=== PATIENT | female | born 1985 | race Caucasian/White ===

== ENCOUNTER 2023-08-04 19:17 | Emergency (ER) | payer SELFPAY ==
--- NOTE | 2023-08-04 19:21 | ED.FEMALEGU ---
HPI - Female Genitourinary General Chief complaint: Urogenital-Female Stated complaint: bladder infection Time Seen by Provider: 08/04/23 19:21 Source: patient Mode of arrival: ambulatory Limitations: no limitations History of Present Illness HPI Narrative: 38-year-old female presents concern for urinary tract infection. She had previously had recurrent urinary tract infections when she was younger, usually around the times she was . Her last urinary tract infection was 2010. She never had any complicated or antibiotic resistant urinary tract infections. She does not know if she has been having any hematuria as she has been trying to self medicate with azo and this discolors her urine. She denies some fevers. LMP 08/02/23. She denies any burning sensation but she does state that it hurts when she pees and feels like she still needs to urinate after voiding. She denies any urinary urgency or frequency. Denies any other vaginal discharge. No back or flank pain. Not currently Sexually active . Related Data Allergies Allergy/AdvReac Type Severity Reaction Status Date / Time morphine Allergy Unknown Other Verified 08/04/23 19:30 [facility] Past Medical History Medical History (Updated 08/04/23 @ 20:40 by Cayla Garcia MD) History of recurrent UTI (urinary tract infection) Exam Narrative: GENERAL: Well-appearing, well-nourished, and in no acute distress. HEAD: Normocephalic, atraumatic. EYES: Non injected, non icteric ENT: Nares clear, no rhinorrhea or epistaxis. NECK: Supple. CHEST: . No respiratory distress. speaking full sentences HEART: tachycardic rate and rhythm. . ABDOMEN: Soft, nondistended. no tenderness to palpation including no suprapubic tenderness BACK: no CVA tenderness bilaterally EXTREMITIES: Normal range of motion. No edema. SKIN: Warm, dry, no rash. NEURO: No focal deficits. Alert and oriented x3. PSYCH: Normal mood and affect. Course Vital Signs Vital signs: Vital Signs Temperature 97.0 F L 08/04/23 19:25 Pulse Rate 110 H 08/04/23 19:25 Respiratory Rate 20 08/04/23 19:25 Blood Pressure 157/79 H 08/04/23 19:25 Pulse Oximetry 97 08/04/23 19:25 Oxygen Delivery Room Air 08/04/23 19:25 Temperature 97.0 F L 08/04/23 19:25 Pulse Rate 110 H 08/04/23 19:25 Respiratory Rate 20 08/04/23 19:25 Blood Pressure 157/79 H 08/04/23 19:25 Pulse Oximetry 97 08/04/23 19:25 Oxygen Delivery Room Air 08/04/23 19:25 MDM - Female Genitourinary MDM Narrative Medical decision making narrative: This is a 38-year-old female who presents with concern for urinary tract infection. She previously had recurrent urinary tract infections when she was younger but none complicated or antibiotic resistant. Her last urinary tract infections was in 2010. She is having some pain with urination feels like she still has to pee after voiding. Unknown hematuria as patient has been self medicating with azo this discolors urine. In the emergency department she is afebrile with vital signs notable for mild tachycardia and hypertension. test negative. Did attempt to perform urinalysis but it is magalie colored in this discoloration in the setting of taking azo limits full interpretation bands there is a evidence of RBCs but no further testing can be performed. I did discuss with the lab in the verify this to be the case. They stated it is possible to perform another simple after patient hydrated an attempt for dilution but cannot guarantee That this would be successful. In addition, when I discussed this with the patient she notes that she took an azo just prior to coming to the emergency department. Given patient is symptomatic and there is high enough suspicion, we will treat for urinary tract infection. She is given her 1st dose of antibiotics in the emergency department with gross the course prescribed. I have discussed that she should follow-up with her rell
[2023-08-04 19:25] VITALS: BP 157/79; PULSE 110; RESP 20; TEMP 36.1; O2SAT 97
--- NOTE | 2023-08-04 19:34 | PC.NURSE ---
Pt refused to change into gown.
[2023-08-04 20:16] LABS: Bacteria Urine None Seen /hpf; Non Pathogenic Casts 0-2; RBC Urine >100 /hpf (0-2); Squamous Epithelial Cell Urine Moderate /hpf (Few); WBC Urine 0-5 /hpf
[2023-08-04 20:19] LABS: Appearance Urine Turbid (Clear); Color Urine Amber (Yellow)
[2023-08-04 20:20] LABS: Add Urine Microscopic? YES
[2023-08-04] MEDS: SULFAMETHOXAZOLE/TRIMETHOPRIM 800/160 MG DS TABLET 1 TAB PO (20:39)
== END 2023-08-04 20:43 | disposition home or self-care (01) ==
PROVIDERS: Emergency Medicine; Emergency Provider Student in an Organized Health Care Education/Training Program
DX: R31.9 Hematuria, unspecified (principal); R30.0 Dysuria; R00.0 Tachycardia, unspecified; R03.0 Elevated blood-pressure reading, without diagnosis of hypertension
CPT/HCPCS: 81001; 81025; 99283; A9270